=== PATIENT | female | born 1965 | race Hispanic/Latino ===

== ENCOUNTER → 2023-01-05 | Day surgery (SDC) | payer BC ==
[~2023-01-05] MED LIST: AMOXICILLIN500 MG PO; ARIMIDEX1 MG PO; CLARITHROMYCIN250 MG PO; GLYCOPYRROLATE INJ 0.2 MG/ML VIAL ONE; LACTATED RINGER'S 1,000 ML ONE; LEVOCETIRIZINE D5 MG PO; LIDOCAINE HCL 2% LOCAL INJ 5 ML SDV VIAL INJ ONE; MIDAZOLAM HCL 2 MG/2 ML VIAL ONE; PEPTO-BISM262 MG/15 PO; POVIDONE IODINE 0.05% 0.05 % ML PO ONE; PROPOFOL IV EMULSION 10 MG/ML 20 ML VIAL ONE; PROTONIX20 MG PO; TAMIFLU75 MG PO
[2023-01-05 15:38] VITALS: TEMP 98.2
[2023-01-05 16:00] VITALS: BP 117/82; PULSE 89; RESP 18; O2SAT 100
== END | disposition home or self-care (01) ==
LOC: OR 13:33
PROVIDERS: ATTEND Internal Medicine Gastroenterology
DX: K29.50 Unspecified chronic gastritis without bleeding (principal); D12.0 Benign neoplasm of cecum; D12.2 Benign neoplasm of ascending colon; D12.4 Benign neoplasm of descending colon; D12.3 Benign neoplasm of transverse colon; K31.A0 Gastric intestinal metaplasia, unspecified; D72.820 Lymphocytosis (symptomatic); B96.81 Helicobacter pylori [H. pylori] as the cause of diseases classified elsewhere; K21.9 Gastro-esophageal reflux disease without esophagitis; K64.8 Other hemorrhoids; R03.0 Elevated blood-pressure reading, without diagnosis of hypertension; F41.9 Anxiety disorder, unspecified; F32.A Depression, unspecified; F17.210 Nicotine dependence, cigarettes, uncomplicated; M06.9 Rheumatoid arthritis, unspecified; C50.911 Malignant neoplasm of unspecified site of right female breast; Z01.810 Encounter for preprocedural cardiovascular examination; Z79.899 Other long term (current) drug therapy; Z68.43 Body mass index [BMI] 50.0-59.9, adult; Z92.3 Personal history of irradiation; Z80.0 Family history of malignant neoplasm of digestive organs
CPT/HCPCS: 43239; 45384; 45385; 93005; J2001; J2250; J2704; J7121